=== PATIENT | female | born 1995 | race Caucasian/White ===

== ENCOUNTER 2024-01-04 12:16 | Emergency (ER) | payer BC ==
[~2024-01-04] VITALS: Ht 160 cm; Wt 0.5 kg
[2024-01-04] MEDS ORDERED: ATARAX,VISTARIL10 MG PO (12:26)
[2024-01-04] MEDS ORDERED: MIXED AMPHETAMIN PO (12:26)
[2024-01-04] MEDS ORDERED: BUSPIRONE HCL10 MG PO (12:26)
[2024-01-04] MEDS ORDERED: VENLAFAXINE HYD75 M3 PO (12:26)
[2024-01-04] MEDS ORDERED: PANTOPRAZOLE SO40 MG PO (12:27)
[2024-01-04] MEDS ORDERED: BUSPAR15 MG PO (12:27)
[2024-01-04] MEDS ORDERED: AMOX-CLAV 875-1 EACH PO (12:48)
[2024-01-04] MEDS ORDERED: PREDNISONE20 M1 PO (12:48)
[2024-01-04] MEDS ORDERED: Amoxicillin/Clavulanate Pota 875 MG TAB PO ONE (12:50)
[2024-01-04] MEDS ORDERED: predniSONE 20 MG TAB PO ONE (12:50)
== END 2024-01-04 12:58 | disposition home or self-care (01) ==
LOC: ED 12:16
DX: K04.7 Periapical abscess without sinus (principal); K13.0 Diseases of lips

== ENCOUNTER 2024-01-31 07:27 | Emergency (ER) | payer BC ==
[~2024-01-31] VITALS: Wt 131.5 kg
[~2024-01-31 07:27] MED LIST: AMOX-CLAV 875-1 EACH PO; ATARAX,VISTARIL10 MG PO; BUSPAR15 MG PO; BUSPIRONE HCL10 MG PO; MIXED AMPHETAMIN PO; PANTOPRAZOLE SO40 MG PO; PREDNISONE20 M1 PO; VENLAFAXINE HYD75 M3 PO
[2024-01-31] MEDS ORDERED: AMOX-CLAV 875-1 EACH PO (08:03)
== END 2024-01-31 08:05 | disposition home or self-care (01) ==
LOC: ED 07:27
DX: H66.92 Otitis media, unspecified, left ear (principal); J02.9 Acute pharyngitis, unspecified